=== PATIENT | male | born 1945 | race American Indian/Alaskan Native ===

== ENCOUNTER 2016-11-20 19:22 | Emergency (ER) | payer MEDICARE ==
--- NOTE | 2016-11-20 23:22 | Emergency Department Report ---
HPI - General Chief Complaint: Eye Problems Time Seen by Provider: 11/20/16 23:00 - HPI HPI: 71-year-old male presents today with bilateral eye swelling 3 days. Positive for erythema. Denies any injury or trauma. Denies history of similar symptoms. Denies drainage, pruritus, foreign body sensation. Patient states that he recently had the insulation tore down at his house and that may have caused it. Tried Benadryl with some relief and states that his swelling has improved. Denies fever, chills, nausea, vomiting, vision change, chest pain, shortness of breath, abdominal pain. ED Past Medical Hx - Past Medical History Previous Medical History?: Yes Hx Hypertension: Yes Hx Diabetes: Yes - Surgical History Past Surgical History?: Yes Additional Surgical History: LEFT TOE - Medications Home Medications: Home Medications Medication Instructions Recorded Confirmed Last Taken Type Cetirizine HCl [ZyrTEC] 10 mg PO QDAY #30 capsule 11/20/16 Unknown Rx ED Review of Systems ROS: Stated complaint: EYE SWELLING Other details as noted in HPI Constitutional: denies: chills, fever, malaise Eyes: denies: eye pain, eye discharge, vision change ENT: denies: ear pain, throat pain, congestion Respiratory: denies: cough, shortness of breath, wheezing Cardiovascular: denies: chest pain, palpitations Endocrine: no symptoms reported Gastrointestinal: denies: abdominal pain, nausea, vomiting Musculoskeletal: denies: back pain Skin: denies: rash Neurological: denies: headache, weakness Physical Exam - Physical Exam Vital Signs: Vital Signs 11/20/16 20:00 Temperature 98.1 F Pulse Rate 88 Respiratory 20 Rate Blood Pressure 141/83 O2 Sat by Pulse 96 Oximetry Physical Exam: GENERAL: The patient is well-developed and well-nourished. Patient is in NAD. HEAD: Normocephalic. Atraumatic. EYES: Extraocular motions are intact, PERRL. Minimal conjunctival injection noted bilaterally. Positive for edema of right eyelid. No drainage noted. NOSE: Normal nasal mucosa with no nasal discharge. THROAT: No erythema, swelling or exudates. NECK: Supple, nontender, without lymphadenopathy. CHEST/LUNGS: Clear to auscultation throughout. HEART/CARDIOVASCULAR: Regular rate and rhythm. ABDOMEN: Abdomen is soft, nontender. No guarding or rebound tenderness. EXTREMITIES: Peripheral pulses intact. Capillary refill less than 2 seconds. NEURO: Alert and oriented x 3. Normal gait. ED Course Vital Signs 11/20/16 20:00 Temperature 98.1 F Pulse Rate 88 Respiratory 20 Rate Blood Pressure 141/83 O2 Sat by Pulse 96 Oximetry ED Medical Decision Making - Lab Data Vital Signs 11/20/16 20:00 Temperature 98.1 F Pulse Rate 88 Respiratory 20 Rate Blood Pressure 141/83 O2 Sat by Pulse 96 Oximetry - Medical Decision Making 71-year-old male presents today with bilateral eye swelling 3 days. Patient states his symptoms have improved and he has been taking Benadryl at home. Patient is recommended to apply warm compresses to both eyes. Patient has been provided with a referral for ophthalmology. Patient is in no acute distress at this time. He will be discharged home and is encouraged to follow up with a primary care provider. He will be sent home once her Zyrtec is encouraged to return to the emergency room for any worsening symptoms. Critical care attestation.: If time is entered above; I have spent that time in minutes in the direct care of this critically ill patient, excluding procedure time. ED Disposition Clinical Impression: Allergic reaction Qualifiers: Encounter type: initial encounter Qualified Code(s): T78.40XA - Allergy, unspecified, initial encounter Disposition: DISCHARGED TO HOME OR SELFCARE Is pt being admited?: No Does the pt Need Aspirin: No Condition: Stable Instructions: Allergies (ED) Additional Instructions: Follow-up with primary care provider. Return to the emergency department if symptoms worsen. Prescriptions: Cetirizine HCl [ZyrTEC] 10 mg PO QDAY #30 capsule Referrals: KRISTIN ANDERSON MD [Primary Care Provider] - 3-5 Days KATIA VENTURA MD [Staff Physician] - 3-5 Days Forms: Work/School Release Form(ED) Time of Disposition: 23:25
[2016-11-20 23:38] VITALS: BP 137/84
== END 2016-11-20 23:37 | disposition home or self-care (01) ==
LOC: ED 19:22
DX: T78.40XA Allergy, unspecified, initial encounter (principal); I10 Essential (primary) hypertension; E11.9 Type 2 diabetes mellitus without complications; Y92.9 Unspecified place or not applicable
CPT/HCPCS: 99282